=== PATIENT | male | born 1945 | race Caucasian/White ===

== ENCOUNTER 2022-01-09 15:53 | Outpatient (REF) | payer MEDICARE, OTHER, SELFPAY ==
[2022-01-09 17:29] LABS: SARS PCR* Negative SARS-CoV-2 (Negative)
== END 2022-01-09 15:54 | disposition home or self-care (01) ==
LOC: NPINS 15:53
PROVIDERS: PCP Family Medicine; Visit Provider Surgery
DX: Z11.52 Encounter for screening for COVID-19 (principal)
CPT/HCPCS: 87635

== ENCOUNTER 2022-01-10 07:40 | Day surgery (SDC) | payer MEDICARE, OTHER, SELFPAY ==
[2022-01-10] VITALS (17 sets, daily range): BP systolic 102–125; BP diastolic 57–71; PULSE 46–64; RESP 14–16; TEMP 36.3–36.6; O2SAT 65–97; BMI 24.0
[2022-01-10] MEDS: LACTATED RINGERS 1000 ML 1,000 ML 100 ML IV (08:24)
[2022-01-10] MEDS: SODIUM CHLORIDE 0.9 % (FLUSH) 10 ML SYRINGE IVF (08:29)
[2022-01-10] MEDS: CEFAZOLIN 2 GM INJ IVP (08:58)
[2022-01-10] MEDS: BUPIVACAINE 0.25% 30 ML INJECTION (09:23)
--- NOTE | 2022-01-10 09:44 | SUR.OPER ---
PATIENT QUESTIONS ANSWERED SATISFACTORILY PREOPERATIVELY.?? PATIENT BROUGHT TO OR #4 PER CART.?? Patient positioned supine on OR #4 bed. The perioperative team tucked arms bilaterally at the patient's sides in a neutral position with the drawsheet.? Final approval of positioning by surgeon.?
--- NOTE | 2022-01-10 10:05 | PM.GSPRC ---
Operative Note Date of procedure: 01/10/22 Type of Procedure: Laparoscopic right inguinal hernia repair with mesh Procedure Description: After discussing the risks and benefits of the procedure, the patient signed informed consent.? The operative site was marked and the patient was brought to the operating room and placed on the operating table in supine position.? Care was taken to pad the patient's pressure points.?? The patient was then intubated by anesthesia.?? The operative site was then prepped and draped in the usual sterile fashion.? A time-out was then performed. A curvilinear incision was made below the umbilicus. Dissection was carried down to subcutaneous tissue until the anterior rectus fascia was encountered. This was incised off the midline on the right. The rectus muscle fibers were then retracted exposing the posterior fascia. A port with a dissecting balloon was then introduced into the pre-preperitoneal space. This was inflated under direct vision. The balloon was deflated, removed, and a 10 mm working port was placed. The space was insuflated and a 10 mm 30-degree scope was then advanced into the space. Two 5 mm ports were placed in the midline under direct vision. Dissection began on the right side. Gilberto's ligament and the pubic bone was exposed medially. Following this, dissection was carried out laterally. An indirect defect was noted. The sac was dissected free from the cord structures using a combination of sharp and blunt dissection. There was a moderate size cord lipoma which was also reduced. Once the sac was completely reduced, a piece of Bard 3DMax mesh for the appropriate side was placed into the abdomen. This was positioned with the marker pointed medially. A Tacker was used to attach the mesh medially at Gilberto's ligament and 1 tack laterally with care to avoid the epigastric vessels and stay above the inguinal ligament. Once this was completed the sac was placed on top of the mesh and the preperitoneal space desufflated under direct vision. The ports were removed. The fascia from the infraumbilical port was closed with 0 Vicryl. The skin incisions were closed with absorbable subcuticular suture. Sterile dressings were then applied. The scrotum was examined to ensure that both testicles were down. Instrument sponge and needle counts were correct at the end of the case. ? The patient was then woken and transported to the recovery area in stable condition. ? The patient tolerated the procedure well. Findings: Indirect right inguinal hernia Anesthesia: ROSANNE Surgeon: Lyn Holden MD Estimated blood loss (mL): 5 Condition: stable Disposition: PACU
--- NOTE | 2022-01-10 10:14 | W.ANESCHARGE ---
Anesthesia Charges Start Date/Time Anesthesia Start Date: 01/10/22 Anesthesia Start Time: 08:51 Stop Date/Time Anesthesia Stop Date: 01/10/22 Anesthesia Stop Time: 10:09 Summary Emergency: No Extremes of Age: Over 71-CPT 63158
--- NOTE | 2022-01-10 10:28 | W.ANESCHARGE ---
Anesthesia Charges Start Date/Time Anesthesia Start Date: 01/10/22 Anesthesia Start Time: 08:51 Stop Date/Time Anesthesia Stop Date: 01/10/22 Anesthesia Stop Time: 10:09 Summary Emergency: No Extremes of Age: Over 71-CPT 88182
== END 2022-01-10 12:50 | disposition home or self-care (01) ==
PROVIDERS: PCP Family Medicine; Visit Provider Surgery
PROC: (CPT 49650; principal; 2022-01-10 09:00)
DX: K40.90 Unilateral inguinal hernia, without obstruction or gangrene, not specified as recurrent (principal)
CPT/HCPCS: 49650; 830; 860; 99100; C1781; J0330; J0690; J1100; J1170; J2405; J2704; J3010; J3490; J7120

== ENCOUNTER 2024-05-13 08:45 | Outpatient (RCR) | payer MEDICARE, OTHER, SELFPAY | END 2024-09-10 23:59 | disposition home or self-care (01) | PROVIDERS: PCP Family Medicine | DX: M72.0 Palmar fascial fibromatosis [Dupuytren] (principal); Z51.89 Encounter for other specified aftercare | CPT/HCPCS: 97035; 97110; 97140; 97165; 97168; L3913; X5282 ==